=== PATIENT | male | born 1985 | race African-American/Black ===

== ENCOUNTER 2021-11-24 14:29 | Inpatient (IN) | payer BC ==
[2021-11-24] MEDS ORDERED: ACETAMINOPHEN 1000 MG/100 ML BAG IVPB ONE (15:02)
[2021-11-24] MEDS ORDERED: SODIUM CHLORIDE 1,000 ML IV STA (15:02)
[2021-11-24 15:32] LABS: BASO % 0.3 % (0-2.0); EOS % 0.1 % (0-4.5); HEMATOCRIT 44.6 % (35.4-49); HEMOGLOBIN 14.8 GM/dL (11.7-16.9); LYMPH % 8.3 % (8-40); MCH 31.4 pg (25.7-33.7); MCHC 33.2 g/dl (32.0-35.9); MEAN CELL VOLUME 94.5 fl (80-96); MEAN PLT VOLUME 10.8 fl (7.5-11.1); MONO % 10.3 % (3.8-10.2); PLATELET COUNT 183 10^3/uL (134-434); RBC 4.72 M/mm3 (4.00-5.60); RDW 13.3 % (11.9-15.9); WHITE BLOOD COUNT 20.5 K/mm3 (4.0-10.0)
[2021-11-24 15:34] LABS: CHLORIDE 106 mmol/L (98-107); SODIUM 138 mmol/L (136-145)
[2021-11-24 15:36] LABS: CALCIUM 9.2 mg/dL (8.5-10.1); GLUCOSE,RANDOM 90 mg/dL (74-106)
[2021-11-24 15:37] LABS: ALBUMIN 3.4 g/dl (3.4-5.0); ANION GAP 8 MMOL/L (8-16); CO2 23 mmol/L (21-32)
[2021-11-24 15:39] LABS: SGOT/AST 12 U/L (15-37)
[2021-11-24 15:40] LABS: SGPT/ALT 27 U/L (13-61)
[2021-11-24 15:41] LABS: BILIRUBIN,TOTAL 0.9 mg/dL (0.2-1)
[2021-11-24 15:42] LABS: ALK PHOS 102 U/L (45-117); TOT PROT 7.8 g/dl (6.4-8.2)
[2021-11-24 15:45] LABS: N-TERMINAL BNP 87.3 pg/ml (5-125)
[2021-11-24 15:56] LABS: ANISOCYTOSIS 0; HELMET CELLS 0; HOWELL-JOLLY BODIES 0; MACROCYTOSIS 0; OVALOCYTE 0; PLATELET ESTIMATE NORMAL; ROULEAU 0; SICKELED CELLS 0; TARGET CELLS 0; TEAR DROP CELLS 0; TOXIC GRANULATION 0
[2021-11-24] MEDS ORDERED: PIPERACILLIN/TAZOB 4.5 GM 4.5 GM in DEXTROSE 5%-WATER 100 ML IVPB ONE (17:07)
[2021-11-24] MEDS ORDERED: VANCOMYCIN 1 GM in D5W (PRE-DOCKED) 1,000 MG/250 ML IVPB ONE (17:16)
[2021-11-24] MEDS ORDERED: morphine CARPU-JECT 4 MG/1 ML DISP.SYRIN IVPUSH ONE (17:18)
[2021-11-24] MEDS ORDERED: morphine SULFATE 4 MG/ML VIAL ONE ×2 (17:21→23:17)
[2021-11-24] MEDS ORDERED: VANCOMYCIN 1 GRAM (PRE-DOCKED) 1,000 MG/250 ML BAG IVPB ONE ×2 (17:22)
[2021-11-24] MEDS ORDERED: PIPERACILLIN/TAZOB 4.5 GM 4.5 GM/100 ML BAG IVPB ONE (17:22)
[2021-11-24 17:46] LABS: PH,URINE 6.5 (5.0-8.0); URINE APPEARANCE CLEAR; URINE BILIRUBIN NEGATIVE (NEGATIVE); URINE COLOR DK YELLOW; URINE GLUCOSE (UA) NEGATIVE (NEGATIVE); URINE KETONE 1+ (NEGATIVE); URINE LEUK ESTERASE NEGATIVE (NEGATIVE); URINE NITRITE NEGATIVE (NEGATIVE); URINE PROTEIN TRACE (NEGATIVE)
[2021-11-24 17:48] LABS: EPI CELLS 11 /uL (0-25.1); HYALINE CASTS 4 /uL (0-3.1); URINE BACTERIA 134 /uL (0-1359); URINE RBC 6 /uL (0-23.9); URINE WBC 32 /uL (0-25.8)
[2021-11-24 18:43] LABS: INR 1.41 (0.83-1.09); PROTHROMBIN TIME (PATIENT) 16.5 SEC (9.7-13.0)
[2021-11-24] MEDS ORDERED: morphine CARPU-JECT 2 MG/1 ML DISP.SYRIN IVPUSH ONE (18:43)
[2021-11-24 18:47] LABS: ACTIVATED PTT 26.8 SECONDS (25.2-36.5)
[2021-11-24] MEDS ORDERED: ONDANSETRON 4 MG/2 ML VIAL IVPUSH PRN (22:20)
[2021-11-24] MEDS ORDERED: ACETAMINOPHEN 1000 MG/100 ML BAG IVPB PRN (22:21)
[2021-11-24] MEDS ORDERED: morphine SULFATE 4 MG/ML VIAL IVPUSH PRN (23:00)
[2021-11-24] MEDS: DEXTROSE 5%-0.45% SALINE 1,000 ML IV SCH (23:22)
[2021-11-25] MEDS ORDERED: PIPERACILLIN/TAZOB 3.375 GM 3.375 GM in DEXTROSE 5%-WATER - 50 ML IVPB SCH (02:00)
[2021-11-25] MEDS ORDERED: PIPERACILLIN/TAZOB 3.375 GM 3.375 GM/50 ML BAG IVPB ONE ×3 (05:11→18:06)
[2021-11-25] MEDS: PIPERACILLIN/TAZOB 3.375 GM 3.375 GM in DEXTROSE 5%-WATER - 50 ML IVPB SCH ×3 (05:18→18:34)
[2021-11-25] MEDS ORDERED: morphine SULFATE 4 MG/ML VIAL ONE ×2 (07:30→07:32)
[2021-11-25] MEDS ORDERED: IBUPROFEN 800 MG/8 ML IJ IVPB SCH (08:30)
[2021-11-25 08:59] LABS: BASO % 0.3 % (0-2.0); EOS % 0.2 % (0-4.5); HEMATOCRIT 41.9 % (35.4-49); HEMOGLOBIN 13.6 GM/dL (11.7-16.9); LYMPH % 6.5 % (8-40); MCH 30.9 pg (25.7-33.7); MCHC 32.4 g/dl (32.0-35.9); MEAN CELL VOLUME 95.4 fl (80-96); MEAN PLT VOLUME 11.3 fl (7.5-11.1); MONO % 9.4 % (3.8-10.2); NEUT % 83.6 % (42.8-82.8); PLATELET COUNT 169 10^3/uL (134-434); RDW 13.4 % (11.9-15.9)
[2021-11-25 09:07] LABS: CHLORIDE 105 mmol/L (98-107); SODIUM 139 mmol/L (136-145)
[2021-11-25 09:12] LABS: ANION GAP 8 MMOL/L (8-16); BLOOD UREA NITROGEN 8.2 mg/dL (7-18); CALCIUM 8.5 mg/dL (8.5-10.1); CO2 26 mmol/L (21-32); GLUCOSE,RANDOM 93 mg/dL (74-106); MAGNESIUM 2.2 mg/dL (1.8-2.4)
[2021-11-25 09:14] LABS: SGOT/AST 63 U/L (15-37); SGPT/ALT 112 U/L (13-61); TRIGLYCERIDES 52 mg/dL (0-150)
[2021-11-25 09:15] LABS: CHOLESTEROL 126 mg/dL (50-200); LDL CHOLESTEROL (ONLY SJRH) 64 mg/dL (5-100)
[2021-11-25 09:16] LABS: BILIRUBIN,TOTAL 1.3 mg/dL (0.2-1)
[2021-11-25 09:17] LABS: ALK PHOS 121 U/L (45-117); HDL CHOLESTEROL 53 mg/dL (40-60)
[2021-11-25] MEDS ORDERED: VANCOMYCIN HCL 1,500 MG in DEXTROSE 5%-WATER - 500 ML IVPB SCH (10:00)
[2021-11-25] MEDS: ACETAMINOPHEN 1000 MG/100 ML BAG IVPB SCH ×2 (14:30→17:14)
[2021-11-25] MEDS ORDERED: ACETAMINOPHEN INJECTION 100 ML IVPB ONE (15:26)
[2021-11-25] MEDS ORDERED: VANCOMYCIN PREMIX 1.5 GM 1,500 MG/300 ML BAG IVPB SCH (18:00)
[2021-11-25] MEDS ORDERED: IBUPROFEN 800 MG/8 ML IJ IVPB ONE (18:05)
[2021-11-25] MEDS ORDERED: IBUPROFEN 800 MG/8 ML IJ IVPB PRN (18:13)
[2021-11-26] MEDS ORDERED: PIPERACILLIN/TAZOB 3.375 GM 3.375 GM/50 ML BAG IVPB ONE ×3 (03:56→18:00)
[2021-11-26] MEDS: DEXTROSE 5%-0.45% SALINE 1,000 ML IV SCH ×2 (04:00→22:16)
[2021-11-26] MEDS: PIPERACILLIN/TAZOB 3.375 GM 3.375 GM in DEXTROSE 5%-WATER - 50 ML IVPB SCH ×3 (04:00→18:05)
[2021-11-26] MEDS ORDERED: ACETAMINOPHEN INJECTION 100 ML IVPB ONE (04:07)
[2021-11-26] MEDS: ACETAMINOPHEN 1000 MG/100 ML BAG IVPB PRN ×2 (04:20→22:17)
[2021-11-26 08:10] LABS: HEMATOCRIT 42.8 % (35.4-49); MCH 31.3 pg (25.7-33.7); MCHC 32.8 g/dl (32.0-35.9); MEAN CELL VOLUME 95.3 fl (80-96); MEAN PLT VOLUME 11.1 fl (7.5-11.1); PLATELET COUNT 163 10^3/uL (134-434); RBC 4.49 M/mm3 (4.00-5.60); RDW 13.2 % (11.9-15.9); WHITE BLOOD COUNT 11.2 K/mm3 (4.0-10.0)
[2021-11-26 09:06] LABS: CALCIUM 8.8 mg/dL (8.5-10.1)
[2021-11-26 09:07] LABS: BLOOD UREA NITROGEN 12.4 mg/dL (7-18)
[2021-11-26 09:09] LABS: CREATININE 0.9 mg/dL (0.55-1.3)
[2021-11-26 09:11] LABS: BILIRUBIN,TOTAL 1.5 mg/dL (0.2-1); TOT PROT 7.4 g/dl (6.4-8.2)
[2021-11-26] MEDS ORDERED: POTASSIUM CHLORIDE TABS 20 MEQ TABLET.ER (FP) PO ONE (09:53)
[2021-11-26] MEDS ORDERED: POTASSIUM CHLORIDE TABS 20 MEQ TABLET.ER (FP) PO SCH (10:00)
[2021-11-26] MEDS ORDERED: VANCOMYCIN 1 GRAM (PRE-DOCKED) 1,000 MG/250 ML BAG IVPB ONE (10:14)
[2021-11-26] MEDS: VANCOMYCIN 1 GM in D5W (PRE-DOCKED) 1,000 MG/250 ML IVPB SCH ×2 (10:25→22:18)
[2021-11-26] MEDS ORDERED: ONDANSETRON 4 MG/2 ML VIAL ONE (18:06)
[2021-11-27] MEDS ORDERED: DEXTROSE 5%-WATER - 50 ML IVPB ONE ×3 (00:57→18:29)
[2021-11-27] MEDS ORDERED: PIPERACILLIN/TAZOBACTAM 3.375 GM VIAL IVPB ONE ×3 (00:57→18:29)
[2021-11-27] MEDS: PIPERACILLIN/TAZOB 3.375 GM 3.375 GM in DEXTROSE 5%-WATER - 50 ML IVPB SCH ×3 (01:20→18:37)
[2021-11-27 07:29] LABS: HEMATOCRIT 41.3 % (35.4-49); HEMOGLOBIN 13.9 GM/dL (11.7-16.9); MCH 31.8 pg (25.7-33.7); MCHC 33.5 g/dl (32.0-35.9); MEAN CELL VOLUME 94.8 fl (80-96); MEAN PLT VOLUME 10.8 fl (7.5-11.1); PLATELET COUNT 165 10^3/uL (134-434); RBC 4.36 M/mm3 (4.00-5.60); RDW 13.1 % (11.9-15.9); WHITE BLOOD COUNT 7.8 K/mm3 (4.0-10.0)
[2021-11-27 08:02] LABS: BLOOD UREA NITROGEN 7.5 mg/dL (7-18); CALCIUM 8.6 mg/dL (8.5-10.1)
[2021-11-27 08:03] LABS: ALBUMIN 2.8 g/dl (3.4-5.0)
[2021-11-27 08:06] LABS: CREATININE 0.8 mg/dL (0.55-1.3)
[2021-11-27 08:07] LABS: BILIRUBIN,TOTAL 1.3 mg/dL (0.2-1)
[2021-11-27 08:08] LABS: TOT PROT 6.8 g/dl (6.4-8.2)
[2021-11-27] MEDS: POTASSIUM CHLORIDE TABS 20 MEQ TABLET.ER (FP) PO SCH ×2 (10:37→22:31)
[2021-11-27] MEDS: VANCOMYCIN/WATER 1250 MG 1,250 MG/250 ML BAG IVPB SCH (22:31)
[2021-11-27] MEDS: DEXTROSE 5%-0.45% SALINE 1,000 ML IV SCH (22:32)
[2021-11-28] MEDS ORDERED: DEXTROSE 5%-WATER - 50 ML IVPB ONE ×3 (02:24→17:00)
[2021-11-28] MEDS ORDERED: PIPERACILLIN/TAZOBACTAM 3.375 GM VIAL IVPB ONE ×3 (02:24→17:00)
[2021-11-28] MEDS: PIPERACILLIN/TAZOB 3.375 GM 3.375 GM in DEXTROSE 5%-WATER - 50 ML IVPB SCH ×3 (02:48→17:51)
[2021-11-28] MEDS: VANCOMYCIN 1 GM in D5W (PRE-DOCKED) 1,000 MG/250 ML IVPB SCH ×2 (07:44→07:45)
[2021-11-28] MEDS: POTASSIUM CHLORIDE TABS 20 MEQ TABLET.ER (FP) PO SCH ×2 (09:57→22:09)
[2021-11-28 13:05] VITALS: BMI 29.9
[2021-11-28 13:51] LABS: ALBUMIN 3.2 g/dl (3.4-5.0)
[2021-11-28 13:52] LABS: BLOOD UREA NITROGEN 6.4 mg/dL (7-18)
[2021-11-28 13:54] LABS: CREATININE 0.9 mg/dL (0.55-1.3)
[2021-11-28 13:56] LABS: BILIRUBIN,TOTAL 0.7 mg/dL (0.2-1); TOT PROT 7.6 g/dl (6.4-8.2)
[2021-11-28] MEDS: DEXTROSE 5%-0.45% SALINE 1,000 ML IV SCH (14:42)
[2021-11-28] MEDS ORDERED: PT OWN MED DRAWER 7, Y5N ONE (22:01)
[2021-11-28] MEDS: VANCOMYCIN/WATER 1250 MG 1,250 MG/250 ML BAG IVPB SCH (22:09)
[2021-11-29] MEDS ORDERED: DEXTROSE 5%-WATER - 50 ML IVPB ONE ×3 (01:20→17:10)
[2021-11-29] MEDS ORDERED: PIPERACILLIN/TAZOBACTAM 3.375 GM VIAL IVPB ONE ×3 (01:20→17:10)
[2021-11-29] MEDS: PIPERACILLIN/TAZOB 3.375 GM 3.375 GM in DEXTROSE 5%-WATER - 50 ML IVPB SCH ×3 (01:44→17:29)
[2021-11-29] MEDS: POTASSIUM CHLORIDE TABS 20 MEQ TABLET.ER (FP) PO SCH ×2 (09:58→21:06)
[2021-11-29 10:10] LABS: BASO % 0.6 % (0-2.0); EOS % 2.6 % (0-4.5); HEMATOCRIT 42.3 % (35.4-49); LYMPH % 15.3 % (8-40); MCH 31.5 pg (25.7-33.7); MCHC 33.2 g/dl (32.0-35.9); MEAN CELL VOLUME 94.9 fl (80-96); MEAN PLT VOLUME 9.8 fl (7.5-11.1); MONO % 9.2 % (3.8-10.2); NEUT % 72.3 % (42.8-82.8); PLATELET COUNT 199 10^3/uL (134-434); RBC 4.46 M/mm3 (4.00-5.60); RDW 13.2 % (11.9-15.9); WHITE BLOOD COUNT 11.2 K/mm3 (4.0-10.0)
[2021-11-29 10:21] LABS: CALCIUM 8.9 mg/dL (8.5-10.1)
[2021-11-29 10:22] LABS: BLOOD UREA NITROGEN 5.7 mg/dL (7-18)
[2021-11-29 10:25] LABS: CREATININE 0.9 mg/dL (0.55-1.3)
[2021-11-29 10:27] LABS: BILIRUBIN,TOTAL 0.5 mg/dL (0.2-1); TOT PROT 7.5 g/dl (6.4-8.2)
[2021-11-30] MEDS ORDERED: PIPERACILLIN/TAZOBACTAM 3.375 GM VIAL IVPB ONE ×2 (02:13→09:07)
[2021-11-30] MEDS ORDERED: DEXTROSE 5%-WATER - 50 ML IVPB ONE ×2 (02:13→09:07)
[2021-11-30] MEDS: PIPERACILLIN/TAZOB 3.375 GM 3.375 GM in DEXTROSE 5%-WATER - 50 ML IVPB SCH ×2 (02:35→09:09)
[2021-11-30 09:01] VITALS: BP 130/80; PULSE 86; TEMP 98.4
[2021-11-30] MEDS: POTASSIUM CHLORIDE TABS 20 MEQ TABLET.ER (FP) PO SCH (09:09)
== END 2021-11-30 17:50 | disposition home or self-care (01) | DRG 392 ==
LOC: JER 14:29 → JERBED 17:21 → J4S 11-26 20:16
PROVIDERS: ADMIT Internal Medicine; ATTEND Internal Medicine
DX: K57.32 Diverticulitis of large intestine without perforation or abscess without bleeding (principal); N39.0 Urinary tract infection, site not specified; R78.81 Bacteremia; I49.8 Other specified cardiac arrhythmias; L30.9 Dermatitis, unspecified; R94.31 Abnormal electrocardiogram [ECG] [EKG]; R10.9 Unspecified abdominal pain; B95.7 Other staphylococcus as the cause of diseases classified elsewhere; Z20.822 Contact with and (suspected) exposure to COVID-19
CPT/HCPCS: 36415; 71045-TC-FY; 74018-TC-FY; 74177-TC; 80053; 80061; 81003; 82550; 83605; 83735; 83880; 84484; 85025; 85027; 85610; 85730; 86140; 86850; 86900; 86901; 87040; 87086; 87186; 87804; 93005; 93010; 99285-25; C9803-CS; Q9967; U0003; U0005

== ENCOUNTER 2022-04-11 04:47 | Day surgery (SDC) | payer BC ==
[2022-04-06 09:19] VITALS: BMI 31.0
[2022-04-11 10:09] VITALS: TEMP 97.8
[2022-04-11 10:47] VITALS: BP 128/92; PULSE 74
== END 2022-04-11 11:07 | disposition home or self-care (01) ==
LOC: JASU-ENDO 04:47
PROVIDERS: ATTEND Internal Medicine Gastroenterology
PROC: 0DBN8ZX Excision of Sigmoid Colon, Via Natural or Artificial Opening Endoscopic, Diagnostic (ICD-10-PCS; 2022-04-11)
PROC: 0DBM8ZX Excision of Descending Colon, Via Natural or Artificial Opening Endoscopic, Diagnostic (ICD-10-PCS; principal; 2022-04-11 09:00)
DX: K52.9 Noninfective gastroenteritis and colitis, unspecified (principal); K57.30 Diverticulosis of large intestine without perforation or abscess without bleeding; K64.8 Other hemorrhoids
CPT/HCPCS: 88305-TC

== ENCOUNTER 2022-06-28 11:54 | Inpatient (IN) | payer BC ==
[2022-06-28 12:02] VITALS: BMI 31.1
[2022-06-28] MEDS ORDERED: SODIUM CHLORIDE 1,000 ML IV STA (13:10)
[2022-06-28] MEDS ORDERED: ACETAMINOPHEN 1000 MG/100 ML BAG IVPB ONE (13:10)
[2022-06-28] MEDS ORDERED: ACETAMINOPHEN INJECTION 100 ML IVPB ONE (13:53)
[2022-06-28 14:58] LABS: BASO % 0.4 % (0-2.0); HEMATOCRIT 41.7 % (35.4-49); LYMPH % 19.1 % (8-40); MCH 31.6 pg (25.7-33.7); MCHC 33.7 g/dl (32.0-35.9); MEAN CELL VOLUME 93.9 fl (80-96); MONO % 8.6 % (3.8-10.2); NEUT % 69.9 % (42.8-82.8); RBC 4.45 M/mm3 (4.00-5.60); RDW 13.5 % (11.9-15.9); WHITE BLOOD COUNT 10.3 K/mm3 (4.0-10.0)
[2022-06-28 15:26] LABS: ALBUMIN 3.4 g/dl (3.4-5.0); BILIRUBIN,TOTAL 0.6 mg/dL (0.2-1); BLOOD UREA NITROGEN 9.6 mg/dL (7-18); CREATININE 0.9 mg/dL (0.55-1.3); MAGNESIUM 2.1 mg/dL (1.8-2.4); TOT PROT 7.3 g/dl (6.4-8.2)
[2022-06-28] MEDS ORDERED: morphine CARPU-JECT 4 MG/1 ML DISP.SYRIN IVPUSH ONE (15:26)
[2022-06-28] MEDS ORDERED: ONDANSETRON 4 MG/2 ML VIAL IVPUSH ONE (15:26)
[2022-06-28] MEDS ORDERED: morphine SULFATE 4 MG/ML VIAL ONE (15:29)
[2022-06-28] MEDS ORDERED: ONDANSETRON 4 MG/2 ML VIAL ONE (15:30)
[2022-06-28] MEDS ORDERED: SODIUM CHLORIDE 0.9% 500 ML INFUS.BAG IV ONE (15:34)
[2022-06-28 15:37] LABS: INR 1.15 (0.83-1.09); PROTHROMBIN TIME (PATIENT) 13.3 SEC (9.7-13.0)
[2022-06-28 15:39] LABS: MEAN PLT VOLUME 10.9 fl (7.5-11.1); PLATELET COUNT 151 10^3/uL (134-434)
[2022-06-28 15:40] LABS: ACTIVATED PTT 28.9 SECONDS (25.2-36.5)
[2022-06-28] MEDS ORDERED: PIPERACILLIN/TAZOB 4.5 GM 4.5 GM in DEXTROSE 5%-WATER 100 ML IVPB ONE ×2 (17:18→17:28)
[2022-06-28] MEDS ORDERED: PIPERACILLIN/TAZOB 3.375 GM 3.375 GM/50 ML BAG IVPB ONE (19:11)
[2022-06-28] MEDS ORDERED: DEXTROSE 5%-NORMAL SALINE 1,000 ML IV SCH (19:45)
[2022-06-28] MEDS ORDERED: ONDANSETRON 4 MG/2 ML VIAL IVPUSH PRN (21:00)
[2022-06-29] MEDS ORDERED: PIPERACILLIN/TAZOB 3.375 GM 3.375 GM in DEXTROSE 5%-WATER - 50 ML IVPB SCH (02:00)
[2022-06-29] MEDS: PIPERACILLIN/TAZOB 3.375 GM 3.375 GM in DEXTROSE 5%-WATER - 50 ML IVPB SCH ×2 (02:29→03:50)
[2022-06-29] MEDS ORDERED: ACETAMINOPHEN 1000 MG/100 ML BAG IVPB PRN (05:19)
[2022-06-29 07:59] VITALS: RESP 20
[2022-06-29 08:15] LABS: CALCIUM 8.3 mg/dL (8.5-10.1)
[2022-06-29 08:16] LABS: BASO % 0.3 % (0-2.0); HEMATOCRIT 39.4 % (35.4-49); HEMOGLOBIN 13.2 GM/dL (11.7-16.9); MCH 31.8 pg (25.7-33.7); MCHC 33.5 g/dl (32.0-35.9); MEAN CELL VOLUME 94.8 fl (80-96); MEAN PLT VOLUME 10.8 fl (7.5-11.1); MONO % 8.7 % (3.8-10.2); PLATELET COUNT 144 10^3/uL (134-434); RBC 4.16 M/mm3 (4.00-5.60); RDW 13.2 % (11.9-15.9); WHITE BLOOD COUNT 8.7 K/mm3 (4.0-10.0)
[2022-06-29 08:16] LABS: BLOOD UREA NITROGEN 7.6 mg/dL (7-18)
[2022-06-29 08:19] LABS: CREATININE 0.9 mg/dL (0.55-1.3)
[2022-06-29] MEDS ORDERED: PIPERACILLIN/TAZOB 3.375 GM 3.375 GM/50 ML BAG IVPB ONE (09:04)
[2022-06-29] MEDS ORDERED: PATIENT'S OWN MEDICATION (NON-FORMULARY) (Ruxolitinib Phosphate [Opzelura] 60 GM Cream..G. TP SCH (10:00)
[2022-06-29] MEDS ORDERED: ENOXAPARIN NA (PORCINE) 40 MG/0.4 ML DISP.SYRIN SQ SCH (10:00)
[2022-06-29 10:12] VITALS: BP 116/78; PULSE 64; TEMP 97.9
== END 2022-06-29 12:05 | disposition home or self-care (01) | DRG 392 ==
LOC: JER 11:54 → JERBED 17:57
PROVIDERS: ADMIT Internal Medicine; ATTEND Internal Medicine
DX: K52.9 Noninfective gastroenteritis and colitis, unspecified (principal); I49.8 Other specified cardiac arrhythmias; L30.9 Dermatitis, unspecified; I10 Essential (primary) hypertension
CPT/HCPCS: 0241U-QW; 36415; 74177-TC; 80048; 80053; 82962; 83605; 83690; 83735; 85025; 85610; 85730; 86850; 86900; 86901; 87040; 99285-25; Q9967

== ENCOUNTER 2022-07-04 13:48 | Emergency (ER) | payer BC ==
[2022-07-04 15:11] VITALS: BP 140/88; PULSE 83; RESP 17; TEMP 98.9; BMI 31.1
== END 2022-07-04 18:13 | disposition home or self-care (01) ==
LOC: JER 13:48
DX: N50.812 Left testicular pain (principal)
CPT/HCPCS: 76870-TC; 99284-25

== ENCOUNTER 2023-08-25 12:07 | Emergency (ER) | payer BC ==
[2023-08-25 12:13] VITALS: BMI 31.8
[2023-08-25] MEDS ORDERED: ACETAMINOPHEN 1000 MG/100 ML BAG IVPB ONE (13:15)
[2023-08-25] MEDS ORDERED: SODIUM CHLORIDE 0.9% 500 ML INFUS.BAG IV ONE (13:15)
[2023-08-25] MEDS ORDERED: ACETAMINOPHEN INJECTION 100 ML IVPB ONE (13:17)
[2023-08-25] MEDS ORDERED: ONDANSETRON 4 MG/2 ML VIAL IVPUSH ONE (13:25)
[2023-08-25] MEDS ORDERED: ONDANSETRON 4 MG/2 ML VIAL ONE (13:36)
[2023-08-25 14:01] LABS: BASO % 0.4 % (0-2.0); EOS % 0.3 % (0-4.5); HEMATOCRIT 46.7 % (35.4-49); HEMOGLOBIN 15.2 GM/dL (11.7-16.9); LYMPH % 6.3 % (8-40); MCH 30.7 pg (25.7-33.7); MCHC 32.6 g/dl (32.0-35.9); MEAN PLT VOLUME 10.5 fl (7.5-11.1); MONO % 6.5 % (3.8-10.2); NEUT % 86.5 % (42.8-82.8); PLATELET COUNT 255 10^3/uL (134-434); RBC 4.97 M/mm3 (4.00-5.60); RDW 13.8 % (11.9-15.9); WHITE BLOOD COUNT 16.2 K/mm3 (4.0-10.0)
[2023-08-25 14:12] LABS: POTASSIUM 3.8 mmol/L (3.5-5.1)
[2023-08-25 14:15] LABS: CALCIUM 9.2 mg/dL (8.5-10.1)
[2023-08-25 14:16] LABS: ALBUMIN 3.4 g/dl (3.4-5.0); BLOOD UREA NITROGEN 9.3 mg/dL (7-18)
[2023-08-25 14:19] LABS: CREATININE 1.1 mg/dL (0.55-1.3)
[2023-08-25 14:20] LABS: TOT PROT 8.1 g/dl (6.4-8.2)
[2023-08-25] MEDS ORDERED: metroNIDAZOLE 250 MG TABLET PO ONE (16:50)
[2023-08-25] MEDS ORDERED: CIPROFLOXACIN 500 MG TABLET (RESTRICTED TO ID) PO ONE (16:50)
[2023-08-25] MEDS ORDERED: metroNIDAZOLE 250 MG TABLET ONE (16:56)
[2023-08-25 17:53] VITALS: BP 126/78; PULSE 76; RESP 13; TEMP 100.2
== END 2023-08-25 17:53 | disposition home or self-care (01) ==
LOC: JER 12:07
PROC: 3E033NZ Introduction of Analgesics, Hypnotics, Sedatives into Peripheral Vein, Percutaneous Approach (ICD-10-PCS; principal; 2023-08-25)
PROC: 3E033GC Introduction of Other Therapeutic Substance into Peripheral Vein, Percutaneous Approach (ICD-10-PCS; 2023-08-25)
DX: R10.32 Left lower quadrant pain (principal); R50.9 Fever, unspecified; K59.00 Constipation, unspecified; R11.2 Nausea with vomiting, unspecified; K57.92 Diverticulitis of intestine, part unspecified, without perforation or abscess without bleeding
CPT/HCPCS: 36415; 74177-TC; 80053; 83690; 85025; 93005; 93010; 99285-25; Q9967